=== PATIENT | male | born 1945 | race Caucasian/White ===

== ENCOUNTER 2018-03-25 18:33 | Inpatient (IN) | payer OTHER ==
[~2018-03-25] VITALS: Ht 170.2 cm; Wt 112.0 kg
[~2018-03-25 18:33] MED LIST: AMLO5TAB13 PO; FURO20TA3 PO; INSUINJ IJ; INSUINJ2 SC; METO25TA62 PO; PRAV20TA3 PO; PRE1T PO; PRED-188 PO
[2018-03-25] MEDS ORDERED: SODIUM CHLORIDE 0.9% 500 ML IV ONE (19:30)
[2018-03-25 19:36] LABS: Hemoglobin 15.1 g/dL (13.5-17.5)
[2018-03-25 19:45] LABS: Hematocrit 46.7 % (41.0-53.0); Mean Corpuscular Hemoglobin 31.8 pg (28.0-32.0); Mean Corpuscular Hgb Conc. 32.3 g/dL (32.0-36.0); Mean Corpuscular Volume 98.3 fL (80.0-100.0); Platelet Count (auto) 266 10^3/uL (140-450); Red Blood Cells 4.75 10^6/uL (4.5-5.90); Red Cell Distribution Width 15.5 % (11.8-14.3); White Blood Cell 7.5 10^3/uL (4.4-10.8)
[2018-03-25 19:48] LABS: Basophils % (manual) 0 (0.0-2.0); Blast Cells 0; INR 0.97 (0.9-1.15); Metamyelocytes % 0; Myelocytes % 0; Partial Thromboplastin Time 23.7 sec (23.78-33.04); Promyelocytes % 0; Prothrombin Time 10.4 sec (9.27-12.13); Reactive Lymphocytes 0
[2018-03-25 19:54] LABS: Albumin 2.4 g/dL (3.4-5.0); BUN/Creatinine Ratio 8.8; Calcium 7.9 mg/dL (8.5-10.1); Magnesium 2.1 mg/dL (1.6-2.6)
[2018-03-25 19:59] LABS: Bilirubin, Total 2.6 mg/dL (0.2-1.0)
[2018-03-25 20:00] LABS: Lactic Acid w/Reflex 4.6 mmol/L (0.4-2.0)
[2018-03-25] MEDS ORDERED: NOREPINEPHRINE 8 MG/250ML KIT 250 ML IV SCH (20:00)
[2018-03-25 20:01] LABS: Band Neutrophils % (manual) 17
[2018-03-25 20:02] LABS: Eosinophils % (manual) 3 (0-7); Lymphocytes % (manual) 2 (10.0-50.0); Monocytes % (manual) 2 (0-12)
[2018-03-25 20:07] LABS: Potassium 2.9 mmol/L (3.5-5.1)
[2018-03-25] MEDS ORDERED: DEXTROSE (50%) 50ML SYRG IV ONE (20:15)
[2018-03-25] MEDS ORDERED: POTASSIUM CHL 20MEQ/100ML 100 ML IV ONE (20:15)
[2018-03-25] MEDS ORDERED: IPRATROPIUM BROM 0.5 MG/2.5ML INH SOL NEB ONE (20:30)
[2018-03-25] MEDS ORDERED: ALBUTEROL SULF 2.5 MG/0.5ML(0.5%) NEB SOLN NEB ONE (20:30)
[2018-03-25] MEDS ORDERED: VANCOMYCIN 1GM/250ML 250 ML IV ONE (21:00)
[2018-03-25] MEDS ORDERED: PIPERACILLIN-TAZOB 3.375GM 100 ML IV ONE (21:00)
[2018-03-25] MEDS ORDERED: ONDANSETRON HCL 4 MG/2 ML VIAL IV ONE (21:45)
[2018-03-25] MEDS ORDERED: HYDROmorphone HCL 2 MG/ML VL IV ONE (21:45)
[2018-03-25 22:06] LABS: Amylase 110 U/L (25-115); Lipase 660 U/L (73-393)
[2018-03-25] MEDS ORDERED: ALBUMIN 5% 250 ML IV ONE (23:15)
[2018-03-25] MEDS ORDERED: LIDOCAINE 1% HCL (LOCAL ANESTH.) INJ 20ML MDV ID ONE (23:15)
[2018-03-25] MEDS ORDERED: ALBUTEROL SULF 2.5 MG/0.5ML(0.5%) NEB SOLN NEB PRN (23:45)
[2018-03-25] MEDS ORDERED: DEXTROSE (50%) 50ML SYRG IV PRN (23:45)
[2018-03-25] MEDS ORDERED: NITROGLYCERIN 0.4 MG SL TAB SL PRN (23:45)
[2018-03-25] MEDS ORDERED: ONDANSETRON HCL 4 MG/2 ML VIAL IV PRN (23:45)
[2018-03-25] MEDS ORDERED: VANCOMYCIN PER PHARMACY 0 MG IV SCH (23:45)
[2018-03-25] MEDS ORDERED: HYDROcodone-ACET 5/325MG TAB PO PRN (23:45)
[2018-03-25] MEDS ORDERED: MORPHINE SULFATE 4 MG/ML SYR/VIAL IV PRN ×2 (23:45)
[2018-03-25] MEDS ORDERED: PIPERACILLIN-TAZOB 2.25GM 0.75 GM in D5W 5% 50 ML IV SCH (23:45)
[2018-03-25] MEDS ORDERED: TEMAZEPAM 15 MG CAP PO PRN (23:45)
[2018-03-25] MEDS ORDERED: ACETAMINOPHEN 325 MG TAB PO PRN (23:45)
[2018-03-26] VITALS (10 sets, daily range): BP systolic 72–162; BP diastolic 49–115
[2018-03-26] MEDS ORDERED: SODIUM CHLORIDE 0.9% 1,000 ML IV SCH
[2018-03-26] MEDS: InsuLIN REG 1unit/0.01ml Soln (100units/ml) SC SCH ×2 (00:30→06:30)
[2018-03-26] MEDS ORDERED: VASOPRESSIN 20 UNIT/ML ONE ×3 (01:21→02:03)
[2018-03-26] MEDS ORDERED: VASOPRESSIN 20 UNIT/ML IV ONE (01:30)
[2018-03-26 01:44] LABS: Lactic Acid w/Reflex 4.2 mmol/L (0.4-2.0)
[2018-03-26 01:48] LABS: Basophils # (auto) 0 uL; Basophils % (auto) 0.2 % (0.0-2.0); Eosinophils # (auto) 0 uL; Eosinophils % (auto) 0.2 % (0.0-7.0); Hematocrit 40.5 % (41.0-53.0); Lymphocytes # (auto) 0.8 uL; Lymphocytes % (auto) 5.5 % (10.0-50.0); Mean Corpuscular Hemoglobin 31.8 pg (28.0-32.0); Mean Corpuscular Hgb Conc. 32.2 g/dL (32.0-36.0); Mean Corpuscular Volume 98.8 fL (80.0-100.0); Monocytes # (auto) 0.2 uL; Monocytes % (auto) 1.4 % (0.0-12.0); Neutrophils # (auto) 12.6 uL; Neutrophils % (auto) 92.7 % (37.0-80.0); Nucleated Red Blood Cells % 1.2 %; Platelet Count (auto) 206 10^3/uL (140-450); Red Blood Cells 4.09 10^6/uL (4.5-5.90); Red Cell Distribution Width 15.6 % (11.8-14.3); White Blood Cell 13.6 10^3/uL (4.4-10.8)
[2018-03-26] MEDS ORDERED: VASOPRESSIN 50 UNITS in D5W 5% 247.5 ML IV SCH (02:00)
[2018-03-26 02:02] LABS: Albumin 2.2 g/dL (3.4-5.0); BUN/Creatinine Ratio 9.3; Calcium 6.7 mg/dL (8.5-10.1); Potassium 4.1 mmol/L (3.5-5.1)
[2018-03-26] MEDS ORDERED: PROPOFOL 100 ML IV ONE (02:04)
[2018-03-26 02:07] LABS: Bilirubin, Total 3.3 mg/dL (0.2-1.0); Total Protein 5.1 g/dL (6.4-8.2)
[2018-03-26] MEDS ORDERED: SODIUM BICARBONATE 8.4 % INJ 50ML VIAL IV ONE ×2 (02:27→04:27)
[2018-03-26] MEDS ORDERED: FUROSEMIDE 20 MG/2 ML VIAL ONE (02:29)
[2018-03-26] MEDS ORDERED: SODIUM BICARBONATE 50ML VIAL 50 ML in SOD CHL 0.45% 1,000 ML IV SCH (02:30)
[2018-03-26] MEDS ORDERED: FUROSEMIDE 20 MG/2 ML VIAL IV ONE (02:30)
[2018-03-26] MEDS ORDERED: PROPOFOL 100 ML IV SCH (03:30)
[2018-03-26] MEDS ORDERED: DOPamine 1600MCG/ML D5W 250 ML IV SCH (03:30)
[2018-03-26] MEDS ORDERED: SODIUM BICARBONATE 50ML VIAL 50 ML in D5W 5% 1,000 ML IV SCH (03:30)
[2018-03-26] MEDS ORDERED: DOBUTamine 1000MCG/ML 250 ML IV SCH (03:30)
[2018-03-26] MEDS ORDERED: fentaNYL Drip 2500mCg/250mlNS 250 ML IV SCH (04:15)
[2018-03-26] MEDS ORDERED: PANTOPRAZOLE 40 MG/10 ML VIAL IV SCH (06:00)
[2018-03-26] MEDS: ACCU-CHEK COMFORT CURVE STRIP VI SCH ×2 (06:14)
[2018-03-26 08:49] LABS: Red Cell Distribution Width 16.5 % (11.8-14.3)
[2018-03-26 08:50] LABS: Hematocrit 41.4 % (41.0-53.0); Mean Corpuscular Hemoglobin 32.5 pg (28.0-32.0); Mean Corpuscular Hgb Conc. 31.3 g/dL (32.0-36.0); Mean Corpuscular Volume 103.8 fL (80.0-100.0); Platelet Count (auto) 192 10^3/uL (140-450); Red Blood Cells 3.99 10^6/uL (4.5-5.90); White Blood Cell 18.8 10^3/uL (4.4-10.8)
[2018-03-26 09:04] LABS: Blast Cells 0; Eosinophils % (manual) 0 (0-7); Myelocytes % 0; Promyelocytes % 0; Reactive Lymphocytes 0
[2018-03-26] MEDS ORDERED: PIPERACILLIN-TAZOB 2.25GM 50 ML IV SCH (10:00)
[2018-03-26 10:21] LABS: Band Neutrophils % (manual) 31; Basophils % (manual) 1 (0.0-2.0); Lymphocytes % (manual) 1 (10.0-50.0); Metamyelocytes % 2; Monocytes % (manual) 2 (0-12)
[2018-03-26] MEDS ORDERED: VANCOMYCIN 500 MG in D5W 5% 100 ML IV ONE (18:00)
[2018-03-26] MEDS ORDERED: SODIUM BICARBONATE 8.4% INJ 50ML SYRINGE IV ONE (18:44)
[2018-03-26] MEDS ORDERED: EPINEPHrine HCL 1 MG/10 ML SYRG IV ONE (18:44)
[2018-03-26] MEDS ORDERED: CALCIUM CHLOR(10%) 100MG/ML 10ML SYRINGE IV ONE (18:44)
[2018-03-26] MEDS ORDERED: DOPamine 1600mCg/ml 400MG/250ml NSorD5 KIT/BAG IV ONE (18:44)
[2018-03-26] MEDS ORDERED: HEPARIN SODIUM (PORCINE) 5000 UNITS/ML 1ML VIAL SC SCH (22:00)
== END 2018-03-26 18:45 | disposition expired | DRG 871 ==
LOC: EDBD 18:33 → ER 18:37 → TELE 23:45 → ICU WEST 03-26 10:51
PROVIDERS: ADMIT Nurse Practitioner; ATTEND Internal Medicine
PROC: 5A1935Z Respiratory Ventilation, Less than 24 Consecutive Hours (ICD-10-PCS; principal; 2018-03-26)
PROC: 0BH18EZ Insertion of Endotracheal Airway into Trachea, Via Natural or Artificial Opening Endoscopic (ICD-10-PCS; 2018-03-26)
PROC: 02HV33Z Insertion of Infusion Device into Superior Vena Cava, Percutaneous Approach (ICD-10-PCS; 2018-03-26)
PROC: 5A12012 Performance of Cardiac Output, Single, Manual (ICD-10-PCS; 2018-03-26)
DX: A41.9 Sepsis, unspecified organism (principal); K65.0 Generalized (acute) peritonitis; N18.6 End stage renal disease; R65.21 Severe sepsis with septic shock; E87.4 Mixed disorder of acid-base balance; E87.6 Hypokalemia; I46.9 Cardiac arrest, cause unspecified; K57.30 Diverticulosis of large intestine without perforation or abscess without bleeding; K76.0 Fatty (change of) liver, not elsewhere classified; K80.20 Calculus of gallbladder without cholecystitis without obstruction; R79.1 Abnormal coagulation profile; Z66 Do not resuscitate; E16.2 Hypoglycemia, unspecified
CPT/HCPCS: 36415; 36600; 71045; 74176; 76705; 80053; 82150; 82553; 82805; 82962; 83605; 83690; 83735; 83880; 84443; 84484; 85007; 85025; 85027; 85379; 85610; 85730; 86850; 86900; 86901; 87040; 87070; 87077; 87081; 87186; 87205; 93005; 93970; 94002; 94640; 94761; 96365; 96372; 96375; A6257; C9113; G0378; J1815; J2001; J2405; J2543; J2704; J3480; J7060